=== PATIENT | male | born 1985 | race American Indian/Alaskan Native ===

== ENCOUNTER 2017-10-05 23:02 | Emergency (ER) | payer SELFPAY ==
[~2017-10-05] VITALS: Ht 180.3 cm; Wt 104.0 kg
[2017-10-06] MEDS ORDERED: SODIUM CHLORIDE 0.9% 1,000 ML IV ONE (05:55)
[2017-10-06] MEDS ORDERED: TETANUS, DIPHTHERIA, PERTUSSIS VAC/PF 0.5ML (>7YR OLD) IM ONE (06:00)
[2017-10-06] MEDS ORDERED: LIDOCAINE HCL 1% 20ML VIAL (Pyxis) INJ MC ONE (06:00)
[2017-10-06] MEDS ORDERED: BACITRACIN ZINC OINT UDPKT TOP ONE (06:00)
[2017-10-06] MEDS ORDERED: KETOROLAC 30MG/ML VIAL IM ONE (06:00)
[2017-10-06] MEDS ORDERED: CLINDAMYCIN 600 MG in DEXTROSE 5% WATER 50 ML IV ONE (06:00)
[2017-10-06 07:21] LABS: BASOPHILS % 0.7 % (0.0-2.0); EOSINOPHILS % 1.4 % (0.0-5.0); HEMATOCRIT. 44.8 % (42.0-52.0); HEMOGLOBIN. 14.5 g/dL (14.0-18.0); LYMPHOCYTES % 17.2 % (20.0-50.0); MEAN CORPUSCULAR HEMOGLOBIN 26.3 pg (28.0-32.0); MONOCYTES % 7.5 % (2.0-8.0); NEUTROPHILS % 73.2 % (40.0-76.0); PLATELET 234 x1000/uL (130-400); RED BLOOD CELL COUNT 5.52 mill/uL (4.7-6.1); RED CELL DISTRIBUTION WIDTH 15.2 % (11.6-14.6)
[2017-10-06 07:29] LABS: PROTHROMBIN TIME 10.4 sec (9.4-11.6)
[2017-10-06 07:36] LABS: CARBON DIOXIDE 29 mEq/L (21-32); CHLORIDE 102 mEq/L (98-107)
[2017-10-06] MEDS ORDERED: CLINDAMYCIN 600MG PREMIX 50 ML IV ONE (07:45)
[2017-10-06 08:08] VITALS: BP 130/72
== END 2017-10-06 10:10 | disposition home or self-care (01) ==
LOC: ER 23:02
DX: N45.4 Abscess of epididymis or testis (principal); F17.210 Nicotine dependence, cigarettes, uncomplicated; D72.829 Elevated white blood cell count, unspecified
CPT/HCPCS: 36415; 80053; 83605; 85025; 85610; 87040; 90471; 90715; 96361; 96365; 96372; 99285; A4217; J1885; J3490; J7030; Z7610; J7060

== ENCOUNTER 2019-08-08 11:39 | Emergency (ER) | payer SELFPAY ==
[~2019-08-08] VITALS: Ht 180.3 cm; Wt 104.0 kg
[2019-08-08] MEDS ORDERED: IBUPROFEN 600MG TABLET PO ONE (13:30)
[2019-08-08] MEDS ORDERED: ACETAMINOPHEN WITH CODEINE 300/30MG TABLET PO ONE (13:30)
[2019-08-08 13:53] LABS: CLARITY URINE CLEAR (CLEAR); COLOR URINE YELLOW (YELLOW); KETONES URINE NEGATIVE (NEGATIVE); LEUKOCYTE ESTERASE URINE NEGATIVE (NEGATIVE); NITRITE URINE NEGATIVE (NEGATIVE); OCCULT BLOOD URINE NEGATIVE (NEGATIVE); PH URINE 5.5 (4.5-8.0); PROTEIN URINE NEGATIVE (NEGATIVE); UROBILINOGEN URINE 0.2 E.U./dL (0.2-1.0)
[2019-08-08 16:45] VITALS: BP 134/78
== END 2019-08-08 17:16 | disposition home or self-care (01) ==
LOC: ER 11:39
DX: S06.2X9A Diffuse traumatic brain injury with loss of consciousness of unspecified duration, initial encounter (principal); S16.1XXA Strain of muscle, fascia and tendon at neck level, initial encounter; M79.632 Pain in left forearm; M79.631 Pain in right forearm; M54.5 Low back pain; V43.52XA Car driver injured in collision with other type car in traffic accident, initial encounter; Y93.89 Activity, other specified; Y92.488 Other paved roadways as the place of occurrence of the external cause
CPT/HCPCS: 71045; 72100; 73090; 73110; 81003; 82962; 99284